=== PATIENT | female | born 1985 ===

== ENCOUNTER 2021-06-20 14:16 | Emergency (ER) | payer OTHER ==
[2021-06-20] MEDS ORDERED: Lidocaine 1% 5 ML VIAL INJECT ONE (14:44)
[2021-06-20] MEDS ORDERED: Sulfamethoxazole/Trimethoprim 800-160 MG Tab PO STA (14:46)
[2021-06-20] MEDS ORDERED: Ketorolac 30 MG/ML SDV IM ONE (15:09)
== END 2021-06-20 16:00 | disposition home or self-care (01) ==
LOC: MW.ED 14:16
DX: L03.114 Cellulitis of left upper limb (principal); L02.414 Cutaneous abscess of left upper limb
CPT/HCPCS: 87070; 87077; 87186; 87205; 96372; 99283; A9270; J1885; 10060